=== PATIENT | female | born 2000 | race African-American/Black ===

== ENCOUNTER 2023-08-20 15:06 | Emergency (ER) | payer MEDICAID ==
[2023-08-20 16:32] LABS: APPEARANCE,URINE CLEAR (Clear); BILIRUBIN,URINE NEGATIVE (Negative); COLOR,URINE YELLOW (Yellow); GLUCOSE,URINE NEGATIVE (Negative); KETONES,URINE NEGATIVE (Negative); LEUKOCYTE ESTERASE,URINE NEGATIVE (Negative); NITRITE,URINE NEGATIVE (Negative); OCCULT BLOOD,URINE NEGATIVE (Negative); PROTEIN,URINE NEGATIVE (Negative)
[2023-08-20 17:48] LABS: C. TRACHOMATIS BY PCR NOT DETECTED; N. GONORRHOEAE BY PCR NOT DETECTED
[2023-08-26 10:46] LABS: HSV-1 DNA Negative (Negative); HSV-2 DNA Negative (Negative)
== END 2023-08-20 18:14 | disposition home or self-care (01) ==
LOC: JD.ED 15:06
DX: N76.0 Acute vaginitis (principal); Z88.2 Allergy status to sulfonamides; Z88.8 Allergy status to other drugs, medicaments and biological substances
CPT/HCPCS: 0352U; 36415; 81003; 87491; 87529; 87591; 99283

== ENCOUNTER 2023-08-25 09:10 | Emergency (ER) | payer MEDICAID ==
[2023-08-25] MEDS ORDERED: HYDROmorphone 1 MG/ML Syringe IVPUSH ONE (09:33)
[2023-08-25] MEDS ORDERED: Metoclopramide 10 MG/2 ML SDV IVPUSH ONE (09:34)
[2023-08-25] MEDS ORDERED: Dexamethasone 4 MG/ML 5 ML MDV IV ONE (09:35)
[2023-08-25] MEDS ORDERED: cefTRIAXone 2 GM in Sodium Chloride 0.9% 100 ML IV ONE (09:36)
[2023-08-25] MEDS ORDERED: Dextrose 5%-0.9% NaCl 1,000 ML IV SCH (09:45)
[2023-08-25 09:55] LABS: BASOPHILS ABSOLUTE AUTO 0.1 K/mm3 (0.0-0.2); BASOPHILS PERCENT AUTO 0.6 % (0.0-1.0); EOSINOPHILS ABSOLUTE AUTO 0.2 K/mm3 (0.0-0.4); EOSINOPHILS PERCENT AUTO 1.5 % (0.0-6.0); HEMATOCRIT 38.7 % (37.0-47.0); HEMOGLOBIN 13.2 gm/dl (12.0-16.0); IMMATURE GRAN ABSOLUTE AUTO 0.04 K/mm3 (0.00-0.05); IMMATURE GRAN PERCENT AUTO 0.4 % (0.0-0.4); LYMPHOCYTES ABSOLUTE AUTO 1.6 K/mm3 (1.0-4.8); LYMPHOCYTES PERCENT AUTO 16.9 % (24.0-44.0); MEAN CORPUSCULAR HEMOGLOBIN 29.6 pg (28.0-32.0); MEAN CORPUSCULAR HGB CONC 34.1 g/dl (32.0-36.0); MEAN CORPUSCULAR VOLUME 86.8 fl (83.0-99.0); MEAN PLATELET VOLUME 11.6 fl (9.4-12.3); MONOCYTES ABSOLUTE AUTO 0.8 K/mm3 (0.0-0.8); MONOCYTES PERCENT AUTO 7.8 % (0.0-8.0); NEUTROPHILS ABSOLUTE AUTO 7.1 K/mm3 (1.8-7.7); NEUTROPHILS PERCENT AUTO 72.8 % (41.0-71.0); PLATELET COUNT,PLT 220 K/mm3 (150-400); RED BLOOD CELL COUNT 4.46 M/mm3 (4.10-5.30); WHITE BLOOD CELL COUNT,WBC 9.72 K/mm3 (3.9-11.3)
[2023-08-25 10:09] LABS: CORONAVIRUS COVID-19 NAA NEGATIVE (NEGATIVE); INFLUENZA A NAA NEGATIVE (NEGATIVE); RESPIRATORY SYNCYTIAL VIR NAA NEGATIVE (NEGATIVE)
[2023-08-25 10:14] LABS: A/G RATIO 0.8 (1-2); ALBUMIN 3.2 g/dl (3.4-5.0); ANION GAP 13.5 (5-15); BILIRUBIN TOTAL 0.3 mg/dL (0.2-1.0); CALCIUM 8.4 mg/dL (8.5-10.1); CREATININE 0.8 mg/dL (0.55-1.02); EST CRCL DRUG DOSING (CG) 87.24 mL/min; POTASSIUM,K 3.5 mEq/L (3.5-5.1); PROTEIN TOTAL,TP 7.1 g/dl (6.4-8.2)
[2023-08-25 10:30] LABS: HCG QUALITATIVE,SERUM NEGATIVE (NEGATIVE)
[2023-08-25 10:37] LABS: SLIDE REVIEW ABNORMAL SMEAR
== END 2023-08-25 11:35 | disposition home or self-care (01) ==
LOC: JD.ED 09:10
DX: J02.0 Streptococcal pharyngitis (principal); J03.90 Acute tonsillitis, unspecified; Z88.2 Allergy status to sulfonamides; Z79.899 Other long term (current) drug therapy; Z20.822 Contact with and (suspected) exposure to COVID-19
CPT/HCPCS: 0241U; 36415; 80053; 84703; 85025; 86308; 87651; 96365; 96375; 99284; J0696; J1100; J1170; J2765; J3490; J7042

== ENCOUNTER 2023-11-19 14:03 | Emergency (ER) | payer MEDICAID | END 2023-11-19 17:43 | disposition home or self-care (01) | LOC: JD.ED 14:03 | DX: O23.591 Infection of other part of genital tract in pregnancy, first trimester (principal); B37.31 Acute candidiasis of vulva and vagina; Z79.899 Other long term (current) drug therapy; Z88.2 Allergy status to sulfonamides; Z3A.10 10 weeks gestation of pregnancy | CPT/HCPCS: 0352U; 99283 ==

== ENCOUNTER 2024-05-12 09:37 | Inpatient (IN) | payer MEDICAID ==
[~2024-05-12 09:37] MED LIST: Bupivacaine 0.25% 10 ML SDV ONE; ePHEDrine 50 MG/ML SDV ONE
[2024-05-12] MEDS: Lactated Ringers 1,000 ML IV ONE (10:34)
[2024-05-12] MEDS: Acetaminophen 325 MG Tab PO ONE (10:59)
[2024-05-12] MEDS ORDERED: Lidocaine 1% 50 ML MDV INJECT PRN (11:32)
[2024-05-12] MEDS ORDERED: Calcium Carbonate 500 MG Tab.Chew PO PRN (11:32)
[2024-05-12] MEDS ORDERED: Ondansetron 4 MG/2 ML SDV IVPUSH PRN (11:32)
[2024-05-12] MEDS ORDERED: Oxytocin/0.9 % Sodium Chloride 30 UNIT/500 ML BAG IV SCH (11:45)
[2024-05-12] MEDS ORDERED: ePHEDrine 50 MG/ML SDV IVPUSH PRN (11:58)
[2024-05-12] MEDS: Lactated Ringers 1,000 ML IV SCH (12:03)
[2024-05-12] MEDS: fentaNYL 100 MCG/2 ML SDV EPIDUR PRN (12:08)
[2024-05-12] MEDS: Bupivacaine/fentaNYL/NS 100 ML Bag EPIDUR PRN (12:09)
[2024-05-12 12:14] LABS: BASOPHILS PERCENT AUTO 0.4 % (0.0-1.0); EOSINOPHILS ABSOLUTE AUTO 0.2 K/mm3 (0.0-0.4); HEMATOCRIT 31.9 % (37.0-47.0); HEMOGLOBIN 10.7 gm/dl (12.0-16.0); IMMATURE GRAN ABSOLUTE AUTO 0.05 K/mm3 (0.00-0.05); IMMATURE GRAN PERCENT AUTO 0.5 % (0.0-0.4); LYMPHOCYTES ABSOLUTE AUTO 1.4 K/mm3 (1.0-4.8); LYMPHOCYTES PERCENT AUTO 13.9 % (24.0-44.0); MEAN CORPUSCULAR HEMOGLOBIN 29.5 pg (28.0-32.0); MEAN CORPUSCULAR HGB CONC 33.5 g/dl (32.0-36.0); MEAN CORPUSCULAR VOLUME 87.9 fl (83.0-99.0); MEAN PLATELET VOLUME 11.9 fl (9.4-12.3); MONOCYTES ABSOLUTE AUTO 0.5 K/mm3 (0.0-0.8); MONOCYTES PERCENT AUTO 5.2 % (0.0-8.0); NEUTROPHILS ABSOLUTE AUTO 7.9 K/mm3 (1.8-7.7); NRBC ABSOLUTE 0.04 (0.00-0.02); NRBC PERCENT 0.4 % (0.0-0.2); PLATELET COUNT,PLT 213 K/mm3 (150-400); RED BLOOD CELL COUNT 3.63 M/mm3 (4.10-5.30); WHITE BLOOD CELL COUNT,WBC 10.12 K/mm3 (3.9-11.3)
[2024-05-12] MEDS: Penicillin G Potassium 5 MILLUNITS in Sodium Chloride 0.9% 100 ML IV ONE (12:37)
[2024-05-12] MEDS: diphenhydrAMINE 50 MG/ML SDV IVPUSH PRN (14:27)
[2024-05-12] MEDS: Penicillin G Potassium 2.5 MILLUNITS in Sodium Chloride 0.9% 100 ML IV SCH (16:35)
[2024-05-12] MEDS: Oxytocin/0.9 % Sodium Chloride 30 UNIT/500 ML BAG IV SCH (17:27)
[2024-05-12] MEDS: ceFAZolin 2 GM in Sodium Chloride 0.9% 50 ML IV SCH (19:43)
[2024-05-12] MEDS ORDERED: Docusate Sodium 100 MG Cap PO PRN (20:02)
[2024-05-12] MEDS ORDERED: Magnesium Hydroxide 400 MG/5 ML Susp 30 ML Cup PO PRN (20:02)
[2024-05-12] MEDS: Ibuprofen 800 MG Tab PO SCH (22:00)
[2024-05-12] MEDS: Benzocaine/Menthol 20%-0.5% Spray 78 GM Cannister TOP PRN (22:02)
[2024-05-12] MEDS: Witch Hazel Medicated Pads 40/Jar TOP PRN (22:02)
[2024-05-12] MEDS: Acetaminophen 325 MG Tab PO PRN (23:16)
[2024-05-13] MEDS: Acetaminophen 325 MG Tab PO ONE (00:15)
[2024-05-13 06:12] LABS: HEMATOCRIT 31.1 % (37.0-47.0); HEMOGLOBIN 10.2 gm/dl (12.0-16.0); MEAN CORPUSCULAR HEMOGLOBIN 29.3 pg (28.0-32.0); MEAN CORPUSCULAR HGB CONC 32.8 g/dl (32.0-36.0); MEAN CORPUSCULAR VOLUME 89.4 fl (83.0-99.0); MEAN PLATELET VOLUME 11.2 fl (9.4-12.3); PLATELET COUNT,PLT 204 K/mm3 (150-400); RED BLOOD CELL COUNT 3.48 M/mm3 (4.10-5.30)
== END 2024-05-14 11:45 | disposition home or self-care (01) | DRG 807 ==
LOC: JD.OBCHECK 09:37 → JD.OB 09:39 → JD.OBCHECK 11:31 → JD.OB 11:32 → OBSVTOIN 19:03 → JD.OB 19:04
PROVIDERS: ADMIT Obstetrics & Gynecology; ATTEND Obstetrics & Gynecology
PROC: 10E0XZZ Delivery of Products of Conception, External Approach (ICD-10-PCS; principal; 2024-05-12)
PROC: 3E0R3BZ Introduction of Anesthetic Agent into Spinal Canal, Percutaneous Approach (ICD-10-PCS; 2024-05-12)
PROC: 00HU33Z Insertion of Infusion Device into Spinal Canal, Percutaneous Approach (ICD-10-PCS; 2024-05-12)
DX: O99.824 Streptococcus B carrier state complicating childbirth (principal); Z37.0 Single live birth; Z3A.37 37 weeks gestation of pregnancy; O69.81X0 Labor and delivery complicated by cord around neck, without compression, not applicable or unspecified
CPT/HCPCS: 36415; 51701; 59025; 59409; 84112; 85025; 85027; 86592; 86850; 86900; 86901; A9270-GY; C1758; J0665; J0690; J1200; J2540; J3010; J3490; J7120; J7999